=== PATIENT | male | born 1970 | race African-American/Black ===

== ENCOUNTER 2019-04-10 01:11 | Emergency (ER) | payer SELFPAY ==
--- NOTE | ~2019-04-10 | XR_ITS ---
EXAMINATION: XR hand LT min 3V DATE: 04/10/2019 01:36 INDICATION: Left hand injury. TECHNIQUE: 3 views of left hand were obtained. COMPARISON: None. FINDINGS: Bone alignment is normal. No fracture. Joint spaces are well maintained. There is a soft ti ssue defect of the distal third digit. IMPRESSION: 1. No fracture or radiopaque foreign body. Reviewed, dictated and finalized at location A. CRIPTION CLERK
[2019-04-10 01:15] VITALS: BP 167/107; PULSE 88; RESP 18; TEMP 37.6; O2SAT 99
--- NOTE | 2019-04-10 01:18 | ED.UPPEXIN ---
HPI - Extremity Injury (Upper) General Chief Complaint: Extremity Injury, Upper Stated Complaint: wound Time Seen by Provider: 04/10/19 01:18 Source: patient and RN notes reviewed Mode of arrival: EMS Limitations: no limitations History of Present Illness HPI narrative: Pt is a 48 y/o male who presents to the ED via EMS with c/o lt middle finger injury happening this evening. 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 Pt reports pain in his lt middle finger ever since the injury. EMS notes that they administered 4 mg of Morphine while in route to the ED. MD complaint: injury to: left and finger (middle) Handedness: right Place: work Context: laceration Associated symptoms: other (pain in lt middle finger; skin tear on lt middle finger) Treatments prior to arrival: bandage and other (Morphine) Related Data Allergies Allergy/AdvReac Type Severity Reaction Status Date / Time No Known Allergies Allergy Verified 04/10/19 02:26 Review of Systems Review of Systems: All systems reviewed & are unremarkable except as noted in HPI and below Musculoskeletal: Musculoskeletal: Reports other (pain in lt middle finger) Integumentary/Breasts: Skin/Breast: Reports other (skin tear on lt middle finger) PMFSH Past Medical History Medical History HTN (hypertension) Surgical History Surgical History No significant past surgical history Social History Social History Smoking status: Former smoker Exam Narrative: Exam Narrative: GENERAL: Well-appearing, well-nourished, and in no acute distress. HEAD: Normocephalic, atraumatic. EXTREMITIES: Normal range of motion. Near complete avulsion of the volar pad of the left third digit. No involvement of bone/nailbed/joint. Sensation intact in affected digit. SKIN: Warm, dry, no rash. NEURO: No focal deficits. Alert and oriented x3. PSYCH: Normal mood and affect. Course Course Emergency Course: wound irrigated, nonadherent applied, and alumafoam finger splint applied. Consultations Consultation #1: Discussed case with plastic surgeon, Dr. Armstrogn. He can follow-up with them on Saturday. Date: 04/10/19 Time: 01:58 Vital Signs Vital signs: Vital Signs Temperature 99.7 F H 04/10/19 01:15 Pulse Rate 88 04/10/19 01:15 Respiratory Rate 18 04/10/19 01:15 Blood Pressure 167/107 H 04/10/19 01:15 Pulse Oximetry 99 04/10/19 01:15 Temperature 99.7 F H 04/10/19 01:15 Pulse Rate 88 04/10/19 01:15 Respiratory Rate 18 04/10/19 01:15 Blood Pressure 167/107 H 04/10/19 01:15 Pulse Oximetry 99 04/10/19 01:15 MDM - Extremity Injury (Upper) Imaging Data My impression: Left Hand: No fracture, soft tissue skin defect 3rd digit. Discharge Plan Discharge Clinical Impression: Avulsion of skin of finger Qualifiers: Encounter type: initial encounter Qualified Code(s): S61.209A - Unspecified open wound of unspecified finger without damage to nail, initial encounter Patient Disposition: Home, Self-Care Condition: Stable Instructions: Skin Avulsion (ED) Additional Instructions: Return to the ER if you have pus draining from your wound, your finger and hand are red/hot, you have streaking up your arm, you develop fever over 100.4 ?F. Prescriptions: New hydrocodone-acetaminophen 5-325 mg tablet 1 tablet PO Q6H PRN (Reason: pain) Qty: 14 RF: 0 Follow-up/Referrals: UNKNOWN,DOCTOR [Primary Care Provider] - Wolf Armstrong MD [Physician] - 04/13/19 Stand Alone Forms: Work/School Release IP
[2019-04-10 02:38] VITALS: BP 144/100; PULSE 85; RESP 18; TEMP 37.3; O2SAT 99
== END 2019-04-10 02:40 | disposition home or self-care (01) ==
PROVIDERS: Emergency Provider Emergency Medicine
DX: S61.213A Laceration without foreign body of left middle finger without damage to nail, initial encounter (principal); I10 Essential (primary) hypertension; Z87.891 Personal history of nicotine dependence; W24.0XXA Contact with lifting devices, not elsewhere classified, initial encounter
CPT/HCPCS: 73130; 99283

== ENCOUNTER 2019-04-14 17:31 | Emergency (ER) | payer OTHER, BC, SELFPAY ==
[2019-04-14 17:41] VITALS: BP 125/87; PULSE 61; RESP 16; TEMP 37; O2SAT 98
--- NOTE | 2019-04-14 17:52 | ED.GENADULT ---
HPI - General Adult General Chief complaint: Unspecified Stated complaint: Left middle finger injury Time Seen by Provider: 04/14/19 17:48 Source: patient and RN notes reviewed Mode of arrival: ambulatory Limitations: no limitations History of Present Illness HPI narrative: 48-year-old male presents with concern for pain medicine. Reports he had an injury to his finger on Saturday at work, causing a skin avulsion. He has an appoint with plastic surgery tomorrow for follow-up. He reports he has 1 more pain pill left. MD complaint: Pain Related Data Home Medications Medication Instructions Recorded Confirmed amlodipine 10 mg PO DAILY 04/14/19 04/14/19 losartan 50 mg PO DAILY 04/14/19 04/14/19 Allergies Allergy/AdvReac Type Severity Reaction Status Date / Time No Known Allergies Allergy Verified 04/10/19 02:26 Review of Systems Review of Systems: Narrative: CONSTITUTIONAL: Denies malaise, chills, sweats, or fever. CARDIOVASCULAR: Denies chest pain, palpitations RESPIRATORY: Denies dyspnea. SKIN: Reports skin avulsion to third digit of left hand MUSCULOSKELETAL: Reports pain to the third digit of left hand NEUROLOGIC: Denies numbness, weaknessn. All systems reviewed & are unremarkable except as noted in HPI and below PMFSH Social History Social History Smoking status: Former smoker Gender identity (if verbalized by the patient): Male Comments At time of signature, agree with nursing past medical, surgical, social and family history. There is no relevant family history pertinent to the presenting complaint Exam Narrative: Exam Narrative: GENERAL: Well-appearing, well-nourished, and in no acute distress. HEAD: Normocephalic EYES: PERRLA, conjunctivae clear NECK: Supple. CHEST: Speaks in full sentences. No respiratory distress. HEART: Regular rate and rhythm. EXTREMITIES: Digits not able to be visualized due to intact dressing SKIN: Warm, dry. NEURO: Alert and oriented x3. PSYCH: Normal mood and affect Course Course Emergency Course: Patient is aware of diagnosis, understands and agrees to treatment plan. Anticipatory guidance given. Patient agrees to follow-up as directed and is aware of reasons to seek care at the emergency department. Portions of this record may have been created with voice recognition software Vital Signs Vital signs: Vital Signs Temperature 98.6 F 04/14/19 17:41 Pulse Rate 61 04/14/19 17:41 Respiratory Rate 16 04/14/19 17:41 Blood Pressure 125/87 04/14/19 17:41 Pulse Oximetry 98 04/14/19 17:41 Temperature 98.6 F 04/14/19 17:41 Pulse Rate 61 04/14/19 17:41 Respiratory Rate 16 04/14/19 17:41 Blood Pressure 125/87 04/14/19 17:41 Pulse Oximetry 98 04/14/19 17:41 Reviewed. Medical Decision Making MDM Narrative Medical decision making narrative: Patient has Coban dressing with gauze and splint in family place. Attempted to remove dressing for a wound check, however the dressing adhered firmly to the wound. Did not disturb as to not risk rebleeding, patient has an appointment with plastic surgery tomorrow. Patient has no general symptoms of wound infection. Vital Signs Vital Signs: Vital Signs Temperature 98.6 F 04/14/19 17:41 Pulse Rate 61 04/14/19 17:41 Respiratory Rate 16 04/14/19 17:41 Blood Pressure 125/87 04/14/19 17:41 Pulse Oximetry 98 04/14/19 17:41 Temperature 98.6 F 04/14/19 17:41 Pulse Rate 61 04/14/19 17:41 Respiratory Rate 16 04/14/19 17:41 Blood Pressure 125/87 04/14/19 17:41 Pulse Oximetry 98 04/14/19 17:41 Critical Care Time Critical Care Time Critical Care Time: No Discharge Plan Discharge Clinical Impression: Injury of finger of left hand Qualifiers: Encounter type: subsequent encounter Qualified Code(s): S69.92XD - Unspecified injury of left wrist, hand and finger(s), subsequent encounter Patient Disposition: Still a P
== END 2019-04-14 18:03 | disposition home or self-care (01) ==
PROVIDERS: Emergency Provider Nurse Practitioner; PCP Physician Assistant
DX: S69.92XA Unspecified injury of left wrist, hand and finger(s), initial encounter (principal); X58.XXXA Exposure to other specified factors, initial encounter; Y99.0 Civilian activity done for income or pay; Z87.891 Personal history of nicotine dependence; I10 Essential (primary) hypertension
CPT/HCPCS: 99213; G0463

== ENCOUNTER 2019-05-13 09:38 | Emergency (ER) | payer OTHER, BC, SELFPAY ==
--- NOTE | ~2019-05-13 | XR_ITS ---
EXAMINATION: XR shoulder RT min 2V DATE: 05/13/2019 10:22 INDICATION: Right shoulder pain. TECHNIQUE: 4 views of right shoulder were obtained. COMPARISON: None. FINDINGS: Bone alignment is normal. No fracture. Glenohumeral joint is normal. There is moderate acro mioclavicular joint osteoarthritis. Calcified right hilar lymph nodes are consistent with old granulo matous disease. IMPRESSION: 1. Moderate acromioclavicular joint osteoarthritis. Reviewed, dictated and finalized at location A.
[2019-05-13 09:45] VITALS: BP 152/102; PULSE 64; RESP 17; TEMP 36.6; O2SAT 100
--- NOTE | 2019-05-13 10:00 | ED.GENADULT ---
HPI - General Adult General Chief complaint: Extremity Injury, Upper Stated complaint: shoulder pain Time Seen by Provider: 05/13/19 09:45 Source: patient Mode of arrival: ambulatory Limitations: no limitations History of Present Illness HPI narrative: Patient is a 49-year-old male who presents to emergency department for evaluation of right shoulder pain noting aching pain of the right shoulder worse with activity and movement that is been present since Saturday patient notes historically has had some similar pain and since injuring the left hand has been using the right shoulder more with resultant increasing pain patient notes aching pain worse with activity and movement for which she has been taking medication for pain with minimal improvement has not been seen for this complaint denies actual injury or trauma and on arrival is resting comfortably in the room in no distress. Pain is an aching pain around the right shoulder musculature and paraspinal thoracic musculature that radiates into the right cervical para spinal musculature Related Data Home Medications Medication Instructions Recorded Confirmed amlodipine 10 mg PO DAILY 04/14/19 04/14/19 losartan 50 mg PO DAILY 04/14/19 04/14/19 Allergies Allergy/AdvReac Type Severity Reaction Status Date / Time No Known Allergies Allergy Verified 05/13/19 09:50 Review of Systems Review of Systems: All systems reviewed & are unremarkable except as noted in HPI and below PMFSH Past Medical History Medical History HTN (hypertension) Surgical History Surgical History No significant past surgical history Social History Social History Smoking status: Former smoker Gender identity (if verbalized by the patient): Female Exam Narrative: Exam Narrative: GENERAL: Well-appearing, well-nourished, and in no acute distress. HEAD: Normocephalic, atraumatic. EYES: PERRLA and EOMI. ENT: Nares clear, no rhinorrhea or epistaxis. Mucous membranes moist. Oropharynx without tonsillar hypertrophy exudate or other lesions. NECK: Supple. No adenopathy or masses. CHEST: Clear to auscultation. No respiratory distress. No wheezes rales or rhonchi HEART: Regular rate and rhythm. No murmur heard. Normal peripheral pulses. EXTREMITIES: Normal range of motion. No edema. Tenderness around the right rotator cuff musculature right paraspinal thoracic musculature and right paraspinal cervical musculature SKIN: Warm, dry, no rash. NEURO: No focal deficits. Alert and oriented x3. Cranial nerves II through XII grossly intact. Neurovascularly intact PSYCH: Normal mood and affect. Course Course Emergency Course: Patient in the room in no distress aware of case findings treatment plan and diagnosis agreeing to follow-up as directed or to return if symptoms worsen or concerns Vital Signs Vital signs: Vital Signs Temperature 97.9 F 05/13/19 09:45 Pulse Rate 64 05/13/19 09:45 Respiratory Rate 17 05/13/19 09:45 Blood Pressure 152/102 H 05/13/19 09:45 Pulse Oximetry 100 05/13/19 09:45 Temperature 97.9 F 05/13/19 09:45 Pulse Rate 64 05/13/19 09:45 Respiratory Rate 17 05/13/19 09:45 Blood Pressure 152/102 H 05/13/19 09:45 Pulse Oximetry 100 05/13/19 09:45 Medical Decision Making MDM Narrative Medical decision making narrative: Patients injury or pain is consistent with musculoskeletal etiology. No signs of neurological or vascular compromise on exam. Compartments and tisues are soft without signs of compartment syndrome. Pain is felt appropriate for further evaluation on an outpatient basis. Vital Signs Vital Signs: Vital Signs Temperature 97.9 F 05/13/19 09:45 Pulse Rate 64 05/13/19 09:45 Respiratory Rate 17 05/13/19 09:45 Blood Pressure 152/102 H 05/13/19 09:45 Pulse Oximetr
[2019-05-13] MEDS: KETOROLAC (*BKC) 60 MG/2 ML VIAL IM (11:14)
== END 2019-05-13 11:19 | disposition home or self-care (01) ==
PROVIDERS: Emergency Provider Emergency Medicine
DX: M25.511 Pain in right shoulder (principal); I10 Essential (primary) hypertension
CPT/HCPCS: 73030; 96372; 99283; J1885